=== PATIENT | female | born 1960 | race Caucasian/White ===

== ENCOUNTER 2021-09-03 09:17 | Outpatient (CLI) | payer MEDICAID, SELFPAY ==
--- NOTE | 2021-09-03 09:26 | XR_ITS ---
WS: [id number] XR ribs LT 2V* [id number] REASON FOR EXAM: LEFT SIDED RIB PAIN FINDINGS: No fracture or focal bone lesion of the left ribs. Left lung and pleura are normal. No soft tissue abnormality. XR/XR ribs LT 2V* [id number] IMPRESSION: No significant abnormality.
== END 2021-09-03 09:18 | disposition home or self-care (01) ==
LOC: RAD 09:23
PROVIDERS: PCP Nurse Practitioner Family; Visit Provider Nurse Practitioner Family
DX: R07.81 Pleurodynia (principal)
CPT/HCPCS: 71100

== ENCOUNTER → 2021-10-04 08:39 | Outpatient (BNVA) | payer MEDICAID, SELFPAY | PROVIDERS: PCP Nurse Practitioner Family; Visit Provider Physician Assistant | DX: Z01.812 Encounter for preprocedural laboratory examination (principal); Z20.822 Contact with and (suspected) exposure to COVID-19 | CPT/HCPCS: 87635 ==

== ENCOUNTER 2021-10-10 07:19 | Day surgery (SDC) | payer MEDICAID, SELFPAY ==
[2021-10-07 14:29] VITALS: BMI 25.9
[2021-10-10 07:40] VITALS: BP 118/76; PULSE 82; RESP 18; O2SAT 97
--- NOTE | 2021-10-10 07:41 | W.PM.OPSFHP ---
Same Day Surgery H&P Indication for Procedure/HPI DATE OF PROCEDURE: October 10, 2021 CHIEF COMPLAINT/INDICATIONFOR SURGICAL PROCEDURE: Screening colonoscopy PREOP DIAGNOSIS: Screening colonoscopy PLANNED PROCEDURE: Operation Date: 10/10/21 08:30 Proposed Procedures p Colonoscopy 34766 Z12.11(Not Applicable) - Roby Daniels MD This is a pleasant 61 years old female patient referred to my practice for screening colonoscopy, patient never had screening colonoscopy before and she reports to me that her dad at age of 72 with history of colon cancer. She denies any bleeding except for some hemorrhoids and no history of nonintentional weight loss. Apparently the knowledge of the hemorrhoids was not shared by patient's primary care provider and she just reports to me today about that. ROS All systems have been reviewed negative except as for the above or per problem LIST Medications/Allergies* Home Medications Medication Instructions Recorded Confirmed Type lisinopril-hydrochlorothiazide 0.5 tab PO DAILY 10/07/21 10/07/21 History Allergies/Adverse Reactions Allergy/AdvReac Type Severity Reaction Status Date / Time No Known Allergies Allergy Verified 10/10/21 07:45 Pertinent Exam Findings alert, oriented x 3, clear to auscultation bilaterally, regular rate & rhythm and procedure specific exam findings (Abdominal examination nontender nondistended soft) Recommendations Surgery/Procedure today (Colonoscopy with possible biopsy) Other Plans: Plan of care; After thorough history and physical examination and reviewing the chart, plan to perform screening colonoscopy. I discussed with the patient in details the risks,benefits,alternatives and indications.The risk of aspiration, bleeding, soft tissue injury, perforation of the colon and other potential concomitant complications were explained to the patient in details,also the potential need for Laproscoy/Laparotomy to repair any related complications including but not limited to colectomy and or Closotomy.The patient understood this well and did agree to proceed. Rationale was carefully and clearly discussed with the patient.Appropriate informed consent have been reviewed and signed All questions have been answered and all concerns have been addressed to patient's satisfaction. Verbal and written Instructions were given to the patient for colonoscopy prep Coding Level of Care Code Acute Air Pollution Inspector for Dagoberto Gorman
[2021-10-10] MEDS: sodium chloride 0.9% 1,000 ML 30 ML IV (07:47)
--- NOTE | 2021-10-10 07:49 | ANES.PREANE2 ---
Pre-Anesthetic Assessment Pre-Anesthetic Assessment: Height/Weight: Height 1.57 m Weight 64.41 kg Pulse Resp BP Pulse Ox 82 18 118/76 97 10/10/21 07:40 10/10/21 07:40 10/10/21 07:40 10/10/21 07:40 Preop Diagnosis: Screening colonoscopy Proposed Procedure: Operation Date: 10/10/21 08:30 Proposed Procedures p Colonoscopy 77168 Z12.11(Not Applicable) - Roby Daniels MD Was Beta Ariana taken within 24 hours: N/A Was Clonidine taken within 24 hours: N/A Last intake: Intake Last Liquid Date 10/09/21 Last Liquid Time 18:00 Last Solid Date 10/08/21 Last Solid Time 18:00 Social: Social History: Tobacco and No alcohol Packs per day: 0.5 Exam: Pre-Anes Outpt Exam: alert, oriented x 3, clear to auscultation bilaterally and regular rate & rhythm Airway: Submandibular: WNL Cervical ROM: WNL MP: 1 Dentition: Chipped Additional comments: several missing Pulmonary: Pulmonary: COPD and SOB Comments: inhaler daily CV/HEM: CV/HEM: HTN : : None reported Hepatic: Hepatic: None reported GI: GI: GERD (certain foods) Metabolic: Metabolic: None reported Musc/skel: Musc/skel: None reported Neuropsych: Neuropsych: None reported Anesthetic Plan: ASA status: 2 Anesthesia: MAC Risk of > 500 ml blood loss (7ml/kg in children): No Medications/Allergies Current Medications: Current Medications Generic Name Dose Route Start Last Admin Trade Name Freq PRN Reason Stop Dose Admin Sodium Chloride 1,000 mls @ 30 ml s/hr 10/10/21 08:00 10/10/21 07:47 Sodium Chloride 0.9% IV 30 mls/hr .Q24H PETAR Administration Data Anesthesia Cardiac Studies: No Data to Display
[2021-10-10 09:02] VITALS: BP 126/69; PULSE 68; RESP 16; TEMP 36.1; O2SAT 98
--- NOTE | 2021-10-10 09:05 | ANE.PACU2 ---
Inpatient post-anesthesia follow up: Airway intact: Yes Vital signs: Temperature Pulse Rate 82 Respiratory Rate 18 Blood Pressure 118/76 Pulse Oximetry 97 Oxygen Delivery Me thod Room Air Oxygen Flow Rate Fraction of Inspir ed Oxygen Hydration adequate: Yes Nausea and vomiting: No Pain level: 1 Mental status: Baseline
[2021-10-10 09:13] VITALS: BP 104/58; PULSE 71; RESP 16; O2SAT 97
--- NOTE | 2021-10-10 16:22 | ANE.PACU2 ---
Inpatient post-anesthesia follow up: Airway intact: Yes Vital signs: Temperature 97.0 F Pulse Rate 71 Respiratory Rate 16 Blood Pressure 104/58 Pulse Oximetry 97 Oxygen Delivery Me thod Room Air Oxygen Flow Rate Fraction of Inspir ed Oxygen Hydration adequate: Yes Nausea and vomiting: No Pain level: 2 Mental status: Baseline
== END 2021-10-10 09:30 | disposition home or self-care (01) ==
PROVIDERS: PCP Nurse Practitioner Family; Visit Provider Surgery
PROC: 0DJD8ZZ Inspection of Lower Intestinal Tract, Via Natural or Artificial Opening Endoscopic (ICD-10-PCS; CPT 45378; principal; 2021-10-10 08:30)
DX: Z12.11 Encounter for screening for malignant neoplasm of colon (principal); Z80.0 Family history of malignant neoplasm of digestive organs; K64.4 Residual hemorrhoidal skin tags; J44.9 Chronic obstructive pulmonary disease, unspecified; I10 Essential (primary) hypertension; K21.9 Gastro-esophageal reflux disease without esophagitis
CPT/HCPCS: 45378; J2704; J7030

== ENCOUNTER 2022-01-17 09:58 | Outpatient (CLI) | payer MEDICAID, SELFPAY ==
--- NOTE | 2022-01-17 10:30 | XRR_ITS ---
PROCEDURE INFORMATION: Exam: XR Chest Exam date and time: 01/17/2022 10:33 AM Age: 61 years old Clinical indication: Cough TECHNIQUE: Imaging protocol: XR of the chest. Views: 2 views. COMPARISON: CR Chest 2 views* [id number] 11/02/2015 11:33 AM FINDINGS: Lungs: Unremarkable. No consolidation. Pleural spaces: Unremarkable. No pleural effusion. No pneumothorax. Heart/Mediastinum: Unremarkable. No cardiomegaly. Bones/joints: Unremarkable. XR/XR chest 2V* [id number] IMPRESSION: No acute findings.
== END 2022-01-17 09:59 | disposition home or self-care (01) ==
PROVIDERS: PCP Nurse Practitioner Family; Visit Provider Nurse Practitioner Family
DX: R05.3 Chronic cough (principal)
CPT/HCPCS: 71046

== ENCOUNTER 2022-02-05 07:57 | Outpatient (CLI) | payer MEDICAID, SELFPAY ==
--- NOTE | 2022-02-05 08:03 | MM_ITS ---
WS: [id number] BILATERAL SCREENING DIGITAL BREAST TOMOSYNTHESIS MAMMOGRAM WITH CAD HISTORY: SCREENING COMPARISON: None available. Bilateral CC and MLO views with tomosynthesis and synthetic mammography submitted. Computer aided det ection analyzed. Breast composition: There are scattered areas of fibroglandular density. No suspicious masses, microc alcifications or architectural distortion. MM/[place] [id number] IMPRESSION: BI-RADS: 1-Negative FOLLOW UP: 1 Year Follow-up
== END 2022-02-05 07:58 | disposition home or self-care (01) ==
LOC: RADSHAW 08:00
PROVIDERS: PCP Nurse Practitioner Family; Visit Provider Nurse Practitioner Family
DX: Z12.31 Encounter for screening mammogram for malignant neoplasm of breast (principal)
CPT/HCPCS: 77063; 77067

== ENCOUNTER 2022-02-06 11:08 | Outpatient (CLI) | payer MEDICAID, SELFPAY ==
--- NOTE | 2022-02-06 14:27 | PFTS_ITS ---
Date of Study:02/06/22 Date of Dictation: MECHANICS: Forced vital capacity (FVC) is normal. Forced expiratory volume in one second (FEV1) is reduced. FEV1/FVC is reduced. FLOW VOLUME LOOP: Reduced flow at all lung volumes with scooping. LUNG VOLUMES: Not measured DIFFUSING CAPACITY FOR CARBON MONOXIDE: Not measured. INTERPRETATION: The postbronchodilator spirometry is consistent with moderate airflow obstruction. There is no significant postbronchodilator response. Lung volumes and DLCO were not measured. MTDD
== END 2022-02-06 11:09 | disposition home or self-care (01) ==
LOC: RT 11:08
PROVIDERS: PCP Nurse Practitioner Family; Visit Provider Nurse Practitioner Family
DX: R05.9 Cough, unspecified (principal)
CPT/HCPCS: 94060

== ENCOUNTER 2022-02-19 10:44 | Outpatient (CLI) | payer MEDICAID, SELFPAY ==
--- NOTE | 2022-02-19 10:48 | CT_ITS ---
WS: [id number] LDCT LUNG CANCER SCREENING TECHNIQUE: Noncontrast CT of the chest with coronal and sagittal reformatted images. CLINICAL INFORMATION: NICOTINE DEPENDENCE,CIGARETTES COMPARISON: None. DLP: 78.59 mGy.cm DIvol: Mean CTDIvol: 1.60 (mGy) All CT scans at [facility] use at least one of these dose optimization techniques: automat ed exposure control; mA and/or kV adjustment per patient size (includes targeted exams where dose is matched to clinical indication); or iterative reconstruction. FINDINGS: Tiny nodule LEFT upper lobe measuring 2 mm may be partially calcified. Tiny calcified granuloma LEFT lower lobe. Calcified granuloma in the lingula. Tiny 2 mm nodule RIGHT upper lobe. Calcified granulom a in the RIGHT middle lobe. Normal caliber thoracic aorta. No mediastinal or hilar lymphadenopathy. No axillary lymphadenopathy. Adrenal glands are normal. CT/CT lung screening [id number] IMPRESSION: LUNG-RADS: 2-Benign Appearance or Behavior FOLLOW UP: 1 Month LDCT
== END 2022-02-19 10:45 | disposition home or self-care (01) ==
LOC: RAD 10:45
PROVIDERS: PCP Nurse Practitioner Family; Visit Provider Nurse Practitioner Family
DX: Z12.2 Encounter for screening for malignant neoplasm of respiratory organs (principal); F17.210 Nicotine dependence, cigarettes, uncomplicated
CPT/HCPCS: 71271

== ENCOUNTER → 2022-03-14 10:45 | Outpatient (BNVA) | payer MEDICAID, SELFPAY | PROVIDERS: PCP Nurse Practitioner Family; Referring Provider Otolaryngology; Visit Provider Otolaryngology | DX: J44.9 Chronic obstructive pulmonary disease, unspecified (principal); M26.623 Arthralgia of bilateral temporomandibular joint; F17.210 Nicotine dependence, cigarettes, uncomplicated | CPT/HCPCS: 99203; 99204 ==

== ENCOUNTER 2023-01-07 15:59 | Outpatient (CLI) | payer MEDICAID, SELFPAY ==
--- NOTE | 2023-01-07 16:15 | XRR_ITS ---
PROCEDURE INFORMATION: Exam: XR Chest Exam date and time: 01/07/2023 4:23 PM Age: 62 years old Clinical indication: Shortness of breath; Additional info: Copd, acute exacerbation TECHNIQUE: Imaging protocol: Radiologic exam of the chest. Views: 2 views. COMPARISON: CT lung screening [id number] 02/19/2022 11:22 AM FINDINGS: Lungs: Lungs are clear bilaterally. Pleural spaces: No pleural effusion. No pneumothorax. Heart/Mediastinum: The cardiac silhouette and mediastinal contours are unremarkable. Bones/joints: Unremarkable for age. XR/XR chest 2V* [id number] IMPRESSION: No acute cardiopulmonary process.
== END 2023-01-07 16:00 | disposition home or self-care (01) ==
PROVIDERS: PCP Nurse Practitioner Family; Visit Provider Nurse Practitioner Family
DX: J44.1 Chronic obstructive pulmonary disease with (acute) exacerbation (principal)
CPT/HCPCS: 71046

== ENCOUNTER → 2023-04-02 13:00 | Outpatient (BNVA) | payer MEDICAID, SELFPAY | PROVIDERS: PCP Nurse Practitioner Family; Visit Provider Internal Medicine Pulmonary Disease | DX: J30.2 Other seasonal allergic rhinitis (principal); J44.9 Chronic obstructive pulmonary disease, unspecified; R06.02 Shortness of breath | CPT/HCPCS: 36415; 80053; 82785; 85025; 86003 ==

== ENCOUNTER 2023-04-24 13:03 | Outpatient (CLI) | payer MEDICAID, SELFPAY ==
--- NOTE | 2023-04-24 13:15 | CT_ITS ---
WS: [id number] LDCT LUNG CANCER SCREENING HISTORY: lung cancer screening TECHNIQUE: Axial imaging performed from the apices to 1 cm below the costophrenic angles. Coronal and sagittal reformats are submitted with axial MIP series. All CT scans at [facility] use at least one of these dose optimization techniques: automated exposure control; mA and/or kV adjustment per patient size (includes targeted exams where dose is matched to clinical indication); or iterativ e reconstruction. DLP: 44.62 mGy.cm DIvol: Mean CTDIvol: 0.80 (mGy) COMPARISON: 02/19/2022 Diagnostic quality: Satisfactory Lungs: No enlarging or new pulmonary nodules. There are a few small micronodules which are less than 3 mm. No mass or endobronchial lesions. Heart: Normal size heart with no pericardial effusion.. Other findings: Numerous small mediastinal and hilar lymph nodes. Similar appearance to the lymph nod es as compared to 02/19/2022. Mild nodularity of the LEFT adrenal gland. CT/CT lung screening [id number] IMPRESSION: LUNG-RADS: 2-Benign Appearance or Behavior FOLLOW UP: 12 Month: Continue annual screening with LDCT OTHER FINDINGS (S MODIFIER): None.
== END 2023-04-24 13:04 | disposition home or self-care (01) ==
LOC: RAD 13:05
PROVIDERS: PCP Nurse Practitioner Family; Visit Provider Internal Medicine Pulmonary Disease
DX: Z12.2 Encounter for screening for malignant neoplasm of respiratory organs (principal); F17.200 Nicotine dependence, unspecified, uncomplicated; J44.9 Chronic obstructive pulmonary disease, unspecified
CPT/HCPCS: 71271

== ENCOUNTER → 2023-08-19 16:44 | Outpatient (BNVA) | payer MEDICAID, SELFPAY | PROVIDERS: PCP Nurse Practitioner Family; Visit Provider Nurse Practitioner Family | DX: J44.1 Chronic obstructive pulmonary disease with (acute) exacerbation (principal) | CPT/HCPCS: 71046 ==

== ENCOUNTER → 2023-09-09 17:31 | Outpatient (BNVA) | payer MEDICAID, SELFPAY | PROVIDERS: PCP Nurse Practitioner Family; Visit Provider Family Medicine | DX: J44.1 Chronic obstructive pulmonary disease with (acute) exacerbation (principal); N30.00 Acute cystitis without hematuria; R35.0 Frequency of micturition | CPT/HCPCS: 81000; 81003; 87077; 87086; 87184 ==

== ENCOUNTER → 2023-11-23 09:47 | Outpatient (BNVA) | payer MEDICAID, SELFPAY | PROVIDERS: PCP Family Medicine; Visit Provider Family Medicine | DX: R06.02 Shortness of breath (principal) | CPT/HCPCS: 87426 ==

== ENCOUNTER 2024-01-20 12:14 | Outpatient (CLI) | payer MEDICAID, SELFPAY ==
[2024-01-20 12:33] VITALS: BMI 26.9
--- NOTE | 2024-01-20 12:36 | ECG_ITS ---
[facility] Test Date: 2024-01-20 Pat Name: Ketty Cruz Department: Room: Gender: Female Marketing Coordinator: : 1960 Requested By: Arcadio Santana Order Number: [id number] Nielson MD: Alvaro Burt M.D. Interpretive Statements NAME OF STUDY: TREADMILL STRESS TEST INDICATION: [Shortness of Breath on Exertion] EXERCISE DATA: The patient was exercised by Rodger protocol. Baseline heart rate was 92 beats per minute. Baseline blood pressure was 129/75 millimeters of mercury. Maximal predicted heart rate was 156 beats per minute. Maximum heart rate achieved was 132, which was 84% of the maximum predicted heart rate. Maximum blood pressure was 155/56 millimeters of mercury. Total exercise time was 1 minutes and 59 seconds. Maximum METs achieved was 4.6 . The reason for ending the test was patient's inability to continue secondary to severe shortness of breath. The patient complained of shortness of breath during the stress test, which then resolved at the end of the test. ELECTROCARDIOGRAM: BASELINE: Showed sinus rhythm, normal axis, no significant ST-T changes at the baseline noted. [] EXERCISE: At the peak exercise level, [] non-specific ST T wave changes[] RECOVERY: During the recovery period, heart rate dropped appropriately. No significant ST-T changes in the recovery suggestive of ischemia noted. [] CONCLUSION: 1. Exercise capacity is poor 2. Heart rate response was suboptimal 3. Blood pressure response was appropriate 4. Symptoms were significant shortness of breath 5. Stress test is non-diagnostic as patient has poor exercise capacity and could not reach target heart rate. Non specific ST T wave changes noted at exercise. Recommend stress test with imaging to rule out ischemia. Electronically Signed On 02-09-2024 8:59:48 CDT by Alvaro Burt M.D. [id number]
[2024-01-20 13:10] VITALS: BP 121/78; PULSE 81
== END 2024-01-20 12:15 | disposition home or self-care (01) ==
LOC: CDL 12:15
PROVIDERS: PCP Family Medicine; Visit Provider Internal Medicine Pulmonary Disease
DX: Z53.9 Procedure and treatment not carried out, unspecified reason (principal)
CPT/HCPCS: 93017

== ENCOUNTER 2024-01-25 07:55 | Outpatient (CLI) | payer MEDICAID, SELFPAY ==
[2024-01-25 08:18] VITALS: PULSE 74; RESP 18; O2SAT 95
[2024-01-25] MEDS: albuterol 2.5 mg/3 mL Neb INHALATION (08:18)
[2024-01-25 08:22] VITALS: PULSE 85
== END 2024-01-25 07:56 | disposition home or self-care (01) ==
PROVIDERS: PCP Family Medicine; Visit Provider Internal Medicine Pulmonary Disease
DX: J44.9 Chronic obstructive pulmonary disease, unspecified (principal)
CPT/HCPCS: 94060; 94618; 94726; 94729

== ENCOUNTER 2024-02-22 07:49 | Outpatient (CLI) | payer MEDICAID, SELFPAY ==
--- NOTE | 2024-02-22 08:07 | ECG_ITS ---
[facility] Test Date: 2024-02-22 Pat Name: Ketty Curz Department: Room: Gender: Female Industrial Custodian: : 1960 Requested By: Arcadio Santana Order Number: [id number] Nisreen MD: Luis Og M.D. Interpretive Statements NAME OF STUDY: LEXISCAN SESTAMIBI STRESS TEST INDICATION: Poor exercise capacity, PROCEDURE: At the baseline, the EKG revealed normal sinus rhythm with some nonspecific T wave changes. The baseline heart was 79 bpm with a blood pressue of 125/67 mm of Hg Lexiscan was infused over a period of 20 seconds. A total of 0.4 milligrams of Lexiscan was infused. The stress phase was continued for a total of 5 minutes. Heart rate at the end of the stress phase was 102 bpm with a blood pressure 98/60 mm of Hg. The EKG at the peak infusion revealed normal sinus rhythm with some nonspecific ST-T changes. Sestamibi was injected 20 seconds after the Lexiscan infusion. Heart rate at the end of the recovery phase was 97 bpm with a blood pressure of 106/58 mm of Hg. CONCLUSION: 1. Nonspecific EKG changes with the LexiScan infusion 2. No LexiScan induced chest pain or cardiac arrhythmia 3. Normal blood pressure and heart rate response 4. Sestamibi/sestamibi perfusion scan pending; see separate report. Electronically Signed On 02-25-2024 9:30:31 CDT by Luis Og M.D. [id number]
--- NOTE | 2024-02-22 08:07 | NMCV_ITS ---
NM conchita perf SPECT r/s* [id number] Ketty Cruz Age: 63 Gender: F : 1960 Exam Date: 02/22/2024 08:07 Ordering Phys: Arcadio Wesley MD Technologist: ROXANE Tay Exam Location: [facility] Indications: COPD STRESS TEST Please see separate stress test report in [facility] for full findings IMAGE PROTOCOL Rest/Stress 1 Lexiscan Day Radiopharmaceutical Dose (mCi) Administration Site Administered by Rest: Tc-99m 10.9 IV ROXANE Segura Sestamibi Stress:Tc-99m 32.4 IV ROXANE Segura Sestamibi Rest: 22-Feb-2024 60 Discovery 630 Stress: 22-Feb-2024 30 Discovery 630 0.4mg Lexiscan. Images obtained in supine and prone position. SPECT RESULTS Technical Quality: Excellent Raw Data Analysis: Normal Image Corrections: No attenuation or motion correction applied Summed Stress Score: 0 Summed Rest Score: 1 Summed Difference Score: 0 PERFUSION FINDINGS Uniform myocardial tracer uptake with no significant perfusion abnormalities FUNCTIONAL RESULTS (calculated via Gated SPECT) Stress Image LV EF (%): 95 Stress EDV (mL):40 TID: 0.81 Stress ESV (mL):2 FUNCTIONAL FINDINGS: Segmental wall motion analysis revealing no gross wall motion abnormalities IMPRESSIONS 1. Myocardial perfusion imaging revealing uniform myocardial tracer uptake with no significant perfusion abnormalities. 2. Normal LV ejection fraction of 95%. 3. LV wall motion analysis revealing no gross wall motion abnormalities. 4. Normal LV volume Low probability for coronary ischemia, based on the above findings Dr Luis Og MD FACC (Electronically Signed) Final Date: 22 February 2024 13:59 S
[2024-02-22 08:08] VITALS: BMI 26.9
[2024-02-22] MEDS: regadenoson 0.4 Mg/5 ml Syringe 0.400000000000000022 MG IVP (09:47)
[2024-02-22 10:00] VITALS: BP 101/60; PULSE 98
== END 2024-02-22 07:50 | disposition home or self-care (01) ==
PROVIDERS: PCP Nurse Practitioner Family; Visit Provider Internal Medicine Pulmonary Disease
DX: J44.9 Chronic obstructive pulmonary disease, unspecified (principal); R05.3 Chronic cough
CPT/HCPCS: 36415; 78452; 93017; 96374; A9500; J2785

== ENCOUNTER 2024-05-10 10:46 | Outpatient (CLI) | payer MEDICAID, SELFPAY ==
--- NOTE | 2024-05-10 11:00 | MM_ITS ---
WS: [id number] BILATERAL 3D TOMOSYNTHESIS DIGITAL SCREENING MAMMOGRAPHY WITH CAD CLINICAL INFORMATION: SCREENING HISTORY: Screening mammogram. No current complaints. COMPARISON: 2021 TECHNIQUE: Bilateral CC and MLO views. FINDINGS: Scattered fibroglandular densities bilaterally. No suspicious focal mass, asymmetry, calcifications, or architectural distortion. No evidence of malignancy. MM/[place] [id number] IMPRESSION: BI-RADS: 1-Negative FOLLOW UP: 1 Year Follow-up Recommend return to annual screening mammography.
== END 2024-05-10 10:47 | disposition home or self-care (01) ==
LOC: MOBLMAM 10:48
PROVIDERS: PCP Nurse Practitioner Family; Visit Provider Nurse Practitioner Family
DX: Z12.31 Encounter for screening mammogram for malignant neoplasm of breast (principal); R92.323 Mammographic fibroglandular density, bilateral breasts
CPT/HCPCS: 77063; 77067

== ENCOUNTER 2024-05-13 09:07 | Outpatient (CLI) | payer MEDICAID, SELFPAY ==
--- NOTE | 2024-05-13 09:12 | CT_ITS ---
WS: [id number] LDCT LUNG CANCER SCREENING HISTORY: Cancer Screen TECHNIQUE: Axial imaging performed from the apices to 1 cm below the costophrenic angles. Coronal and sagittal reformats are submitted with axial MIP series. All CT scans at [facility] use at least one of these dose optimization techniques: automated exposure control; mA and/or kV adjustment per patient size (includes targeted exams where dose is matched to clinical indication); or iterativ e reconstruction. DLP: 53.70 mGy.cm DIvol: Mean CTDIvol: 0.90 (mGy) COMPARISON: 02/19/2022, 04/24/2023 Diagnostic quality: Satisfactory Lungs: Mild pulmonary hyperinflation. No new or enlarging pulmonary nodules. New endobronchial lesion LEFT upper lobe segmental branch measures 5 mm. This was not present on 04/24/2023. There is an additi onal intraluminal filling defect more distally in the medial LEFT upper lobe bronchus. Heart: Normal size heart with no pericardial effusion.. Other findings: Minimal atherosclerosis aorta. No mediastinal or hilar adenopathy. Normal size pulmon morales artery. Small hiatal hernia. Mild thickening of the LEFT adrenal gland. CT/CT lung screening [id number] IMPRESSION: LUNG-RADS: 4A-Probably Suspicious FOLLOW UP: 3 Month LDCT OTHER FINDINGS (S MODIFIER): None.
--- NOTE | 2024-05-13 09:12 | USCV_ITS ---
Ketty Cruz Age: 63 Gender: F : 1960 Exam Date: 05/13/2024 09:20 Ordering Phys: Kenia Gasca HOUSEKEEPING/LAUNDRY HOUSEKEEPING/LAUNDRY Technologist: CT Exam Location: [facility] [place] Indication: calf pain PROCEDURES: Venous duplex imaging was performed in only the left lower extremity. On the left side, the common femoral, superficial femoral, profunda femoral, popliteal, posterior tibial, greater saphenous veins, and the peroneal trunk were identified and interrogated in the standard fashion. FINDINGS: Normal 2-D Doppler and augmentation and compressibility throughout the lower extremity venous structures. Additional imaging through the proximal calf veins also reveals no thrombus. Limited evaluation of the greater saphenous vein is patent with no thrombus. CONCLUSIONS No DVT left lower extremity. Dr. Veronica Powers DO (Electronically Signed) Final Date: 13 May 2024 10:22 S
== END 2024-05-13 09:08 | disposition home or self-care (01) ==
LOC: RAD 09:07
PROVIDERS: PCP Nurse Practitioner Family; Visit Provider Nurse Practitioner Family
DX: F17.210 Nicotine dependence, cigarettes, uncomplicated (principal); R60.0 Localized edema; I70.0 Atherosclerosis of aorta; E27.8 Other specified disorders of adrenal gland; J98.09 Other diseases of bronchus, not elsewhere classified
CPT/HCPCS: 71271; 93971

== ENCOUNTER → 2025-08-09 08:14 | Outpatient (BNVA) | payer MEDICARE, SELFPAY | PROVIDERS: PCP Nurse Practitioner Family; Visit Provider Nurse Practitioner | DX: R39.9 Unspecified symptoms and signs involving the genitourinary system (principal) | CPT/HCPCS: 81000 ==